=== PATIENT | female | born 1945 | race Caucasian/White ===

== ENCOUNTER 2022-05-06 08:34 | Day surgery (SDC) | payer MEDICARE, OTHER ==
[~2022-05-06] VITALS: Ht 168 cm; Wt 82.0 kg
[~2022-05-06 08:34] MED LIST: ALLEGRA ALLERG180 MG PO; CALCIUM + D3 E1 EACH PO; CENTRUM ADULTS1 EACH PO; CIPRO500 MG PO; CRANBERRY500 M2 PO; NEXIUM 40MG CAP40 MG PO; PERCOCET 5-3251 EACH PO; PRESERVISION A1 EAC2 PO; SERTRALINE HCL100 MG PO; TRAMADOL HCL50 MG PO; TRAZODONE 100M100 MG PO; VITAMIN B-121000 MC1 PO; ZOCOR40 MG PO
--- NOTE | 2022-05-06 16:43 | NUR ---
PATIENT A&0X3, CONVERSING WITHOUT DIFFICULTY, O2 SAT-97%
[2022-05-07 06:33] LABS: BASOPHIL 0.2 % (0-2); EOSINOPHIL 0 % (0-7); HCT 30.1 % (37.0-47.0); HGB 9.8 g/dl (12.5-16.0); LYMPHOCYTE 11.7 % (15-48); MCH 31.4 pg (25.0-31.0); MCHC 32.6 g/dL (32.0-36.0); MCV 96.5 fL (78.0-100.0); MONOCYTE 7.2 % (0-12); NEUTROPHIL 80.4 % (41-80); NRBC 0; PLT 204 K/uL (150-400); RBC 3.12 M/uL (4.20-5.40); RDW 13.2 % (11.5-14.0)
[2022-05-07 06:56] LABS: BUN/CREAT RATIO (CALC) 19.5 RATIO; CREATININE 0.87 mg/dL (0.51-0.95); POTASSIUM 4.2 mmol/L (3.5-5.1)
[2022-05-07] MEDS ORDERED: NORCO 5-325 TA1 EACH PO (09:03)
[2022-05-07] MEDS ORDERED: FEOSOL325 MG PO (09:03)
[2022-05-07] MEDS ORDERED: XARELTO10 MG PO (09:03)
== END 2022-05-07 13:27 | disposition home health service (06) ==
LOC: FAS 08:34 → FMS 12:53 → FAS 05-07 13:27
PROVIDERS: Legal Medicine
DX: M17.11 Unilateral primary osteoarthritis, right knee (principal); M25.761 Osteophyte, right knee; M67.261 Synovial hypertrophy, not elsewhere classified, right lower leg; I10 Essential (primary) hypertension; E78.5 Hyperlipidemia, unspecified; I82.409 Acute embolism and thrombosis of unspecified deep veins of unspecified lower extremity; G47.33 Obstructive sleep apnea (adult) (pediatric); Z88.6 Allergy status to analgesic agent; Z88.8 Allergy status to other drugs, medicaments and biological substances; Z96.612 Presence of left artificial shoulder joint; Z79.01 Long term (current) use of anticoagulants
CPT/HCPCS: 36415; 73560; 80048; 85025; 86850; 86900; 86901; 94010; 94762; 97110; 97162; 97166; 97530-GP; 97535; C1713; C1776; J0171; J0697; J1100; J1170; J1885; J2250; J2270; J2704; J2795; J3010; J7120